=== PATIENT | female | born 1985 | race Caucasian/White ===

== ENCOUNTER 2020-01-18 07:45 | Day surgery (SDC) | payer OTHER ==
[~2020-01-18] VITALS: Ht 157.5 cm; Wt 70.3 kg
[~2020-01-18 07:45] MED LIST: CELEXA20 MG PO; IBUPROFEN800 MG PO; NORCO 5-325 TA1 EACH PO; YAZ 28 TABLET1 EACH PO
[2020-01-18] MEDS ORDERED: LEVOTHYROXINE50 MCG PO (08:22)
--- NOTE | 2020-01-18 11:47 | NUR ---
PATIENT UPDATED ON PLAN OF CARE. SHE REPORTS FEELING HUNGRY AND DENIES NEEDS OTHERWISE.
--- NOTE | 2020-01-18 14:32 | NUR ---
01/18/20 1432 Tiffanie Gastelum 1423- PT ARRIVES TO PACU EASILY AROUSABLE TO VOICE WITH HER EYES CLOSED. RESP EVEN AND UNLABORED. OXYGEN SAT HIGH 90'S TO 100% ON 6L VIA MASK. PT REPORTS NO PAIN OR NAUSEA. 1429- OXYGEN TITRATED OFF. 1432- PT PROVIDED WITH A WARM BLANKET PER HER REQUEST.
--- NOTE | 2020-01-18 15:41 | NUR ---
LE 1515: PATIENT ARRIVES BACK TO ROOM 4 FROM PACU. SPOUSE IS AT THE BEDSIDE. PATIENT IS COMPLAINING OF CATHETER DISCOMFORT. MCKNIGHT BALLOON IS DEFLATED FOR 10 ML FLUID. SCANT AMOUNT OF BRIGHT YELLOW URINE IS NOTED TO MCKNIGHT OVERNIGHT BAG. MCKNIGHT CATHETER IS DC WNL. PATIENT TOLERATES THAT WELL. PATIENT ASKS TO AMBULATE TO THE BATHROOM. SHE DOES WELL WITH THAT AND VOIDS 100 ML BRIGHT YELLOW URINE AND REPORTS A SCANT AMOUNT OF BLOOD ON THE TOILET TISSUE AFTER VOIDING. PATIENT IS BACK IN HER ROOM. SCDS ARE IN PLACE AND TURNED ON. SADIQ HUGGER IS ON WARM. APPLESAUCE AND ICED WATER IS GIVEN. PATIENT IS SITTING UP IN BED, EATING AND DRINKING AND SHE IS TOLERATING THAT WELL. CALL LIGHT IS WITHIN REACH.
--- NOTE | 2020-01-18 16:08 | NUR ---
PATIENT DENIES NAUSEA AFTER APPLESAUCE. CRACKERS ARE GIVEN.
[2020-01-18] MEDS ORDERED: MOTRIN IB200 MG PO (16:18)
[2020-01-18] MEDS ORDERED: PERCOCET 5-3251 EACH PO (16:18)
--- NOTE | 2020-01-18 17:34 | NUR ---
LE 1720: PATIENT IS UP TO THE BATHROOM. SHE AMBULATES WELL AND DENIES DIZZINESS. PATIENT VOIDS A LARGE QUANTITY AND IS BACK TO HER ROOM. PATIENT REPORTS FEELING READY FOR DISCHARGE. DISCHARGE INSTRUCTIONS ARE GIVEN AND SHE VERBALIZES UNDERSTANDING. PATIENT IS GETTING DRESSED.
--- NOTE | 2020-01-21 12:29 | OR ---
[facility] [address] [place], [place] [address] Signed DATE OF OPERATION: 01/18/2020 SURGEON: Memo Newman MD Patient of Dr. Newman. PREOPERATIVE DIAGNOSES: Pelvic pain, adenomyosis, and endometriosis. POSTOPERATIVE DIAGNOSES: Pelvic pain, adenomyosis, and endometriosis. PROCEDURES: Total laparoscopic hysterectomy with left salpingo-oophorectomy and cystoscopy. LETTER OF CREDIT CLERK: Dr. Day. ANESTHESIA: General. ESTIMATED BLOOD LOSS: 20 mL. SPECIMEN: Uterus, left fallopian tube, and ovary. DRAINS: Hammond to bladder. PACKING: None. FINDINGS: Normal-sized cervix, normal-size uterus with scattered small white superficial lesions on the surface of the uterus. Anterior cul-de-sac was free of any endometriosis or adhesions. Posterior cul-de-sac was free of any endometriosis or adhesions. Right tube and ovary were absent from previous surgery and no adhesions noted. The left tube and ovary were slightly twisted around the uteroovarian ligament. The fallopian tube showed evidence of previous tubal ligation. The ovary was of normal size and shape without any Electronically Signed By: MEMO NEWMAN MD 01/21/20 1229 PATIENT NAME: SAKINA OLSON OPERATIVE REPORT DATE OF : 81 REPORT #: [id number] PHYSICIAN: MEMO NEWMAN MD PCP: LEXX BLACKWELL MD REPORT IS CONFIDENTIAL AND NOT TO BE RELEASED WITHOUT AUTHORIZATION [facility] [address] [place], [place] [address] Signed adhesions. No other masses or adhesions were seen. DESCRIPTION OF PROCEDURE: The patient was brought into the operating room, placed in supine position. After adequate general anesthesia was obtained, she was placed in the dorsal lithotomy position, prepped and draped in usual sterile fashion. Hammond catheter was placed in the bladder. A weighted speculum was placed in the vagina and the anterior lip of cervix was grasped with an Allis clamp. The cervix was partially dilated and then the LOGIC DEVICES uterine manipulator inserted through the cervix into the fundus of the uterus and the balloon filled with water. The Allis clamp was removed. The cervical cap slid up along the manipulator and around the cervix and the vaginal cup inserted up against the cervical cap and tightened in place. Weighted speculum was removed. Attention was then drawn to the abdomen. A small infraumbilical skin incision was made with a scalpel after injecting the area with 0.25% Marcaine with epinephrine. Subcutaneous tissue was dissected with Metzenbaum scissors. The fascia identified, grasped, hemostats elevated, nicked with Metzenbaum scissors and extended in a transverse fashion using Metzenbaum scissors. Upper and lower edges of the fascia were then grasped and a stitch of 0 Vicryl suture placed on each side of the incision. These were used to hold the sleeve in place. Finger dissection was used to open the peritoneum and then the Mahsa cannula and sleeve entered the abdomen under direct visualization. The balloon was filled on the sleeve and the outer sleeve slid down and tightened in place and the two retention stitches attached to this outer sleeve. Trocar was removed and laparoscope with video attachment entered the abdomen under direct visualization. Carbon dioxide was used as distending medium. On the left side, a small skin incision was made approximately 10 cm lateral to the midline and just below the level of the umbilicus. The area was 1st transilluminated to avoid any vessels. The area injected with 0.25% Marcaine with epinephrine. Then, a small skin incision made with a scalpel. A bladed 5-mm trocar and sleeve entered the abdomen under direct visualization. Trocar was removed and the balloon at the end of the sleeve filled with air. A blunt grasper inserted through this incision. On the right side again, the abdominal wall was transilluminated approximately 10 cm lateral to the midline and just below the level of the umbilicus. After transilluminating the skin, the area was injected with 0.25% Marcaine with epinephrine and a small skin incision made with a scalpel. A Veress needle with expandable sleeve was then placed in the abdomen under direct visualization. The Veress needle was removed and expandable port was placed in the expandable sleeve and slid into the abdomen under direct visualization. Trocar was removed and blunt grasper was inserted through this side. The above findings were confirmed. The LigaSure bipolar Maryland forceps were used for dissection. The left infundibulopelvic ligament was identified and grasped with bipolar forceps and cauterized in several places and then cut and an Endoloop of 0 Monocryl was placed around the infundibulopelvic ligament and Electronically Signed By: MEMO NEWMAN MD 01/21/20 1229 PATIENT NAME: SAKINA OLSON OPERATIVE REPORT DATE OF : 81 REPORT #: [id number] PHYSICIAN: MEOM NEWMAN MD PCP: LEXX BLACKWELL MD REPORT IS CONFIDENTIAL AND NOT TO BE RELEASED WITHOUT AUTHORIZATION [address] [address] [address] and the tail cut with laparoscopic scissors. The peritoneum just lateral to the tube and ovary were then cauterized and cut with bipolar forceps down to the broad ligament, which was then opened anterior and posteriorly using the Maryland forceps to expose the uterine vessels. This was done close to the side of the uterus and extended to the midline just inside the cervical cap, which could be palpated laparoscopically. Uterine vessels were exposed and then cauterized in several places and cut with Tere forceps, bipolar forceps. The bladder was gently pulled up and away from the cervical cap. As this was done, the anterior peritoneum was dissected. Maryland forceps were then placed in the right side. The right round ligament was cauterized and cut in 2 places and then the peritoneum opened on either side of this anteriorly extending to the broad ligament and down connecting with previous dissection, also posteriorly to the broad ligament and down connecting to the previous dissection posteriorly. Uterine vessels were then exposed. They were cauterized in several places and cut with Tere forceps. The paracervical tissue just inside the cervical cap was cauterized and cut on both sides down to the level of the vaginal wall. The Sonicision instrument was then provided in the operating field and posterior colpotomy made into the groove of the cervical cap and then the vaginal wall tissue cut with the Sonicision posterior to anterior in the groove of the cap on the left side and then posterior to anterior on the right side in the groove of the cap. This the uterus and left tube and ovary from the vagina. The LOG[employer] uterine manipulator was carefully withdrawn with the uterus and tube attached and was passed off the field. A lap pad filled glove was then placed in the vagina, so that the abdomen could be re-insufflated. Attention was then drawn back to the abdomen. The abdomen was re-insufflated. The entire pelvis irrigated, suctioned, examined, and noted to have good hemostasis. Endo Stitch with barbed suture was then used to close the vaginal cuff, starting at the right angle at the uterosacral ligament, making sure to stay on the uterosacral ligament medially and stitching from posterior to anterior individually through the posterior vaginal mucosa, then the anterior vaginal mucosa. This was continued across to the left angle against staying between the 2 uterosacral ligaments and grasping the vaginal mucosa mild and staying shallow enough to avoid the bladder. Upon reaching the left angle, the barbed suture was taken back towards the midline in the combined cuff and thus to help lock suture in place and then suture cut against the vaginal wall. The remaining suture cut off right at the vaginal wall. The entire pelvis was irrigated, suctioned, and examined; noted to have good hemostasis. The gas was allowed to escape to lower the pressure and good hemostasis remained, so all instruments were removed and all the rest of the gas removed and the final sleeves removed. The infraumbilical incision fascia was closed using running stitch of 0 Vicryl suture. The two retention stitches were tied together for further support. The 3 skin incisions were closed using subcuticular stitches of 4-0 Vicryl suture. Cystoscopy was then performed. Hammond catheter was removed and then the 70-degree Electronically Signed By: MEMO NEWMAN MD 01/21/20 1229 PATIENT NAME: SAKINA OLSON OPERATIVE REPORT DATE OF : 81 REPORT #: [id number] PHYSICIAN: MEMO NEWMAN MD PCP: LEXX BLACKWELL MD REPORT IS CONFIDENTIAL AND NOT TO BE RELEASED WITHOUT AUTHORIZATION [address] [address] Signed cystoscope carefully placed through the urethra into the bladder under direct visualization. Sterile water was used as distending medium. The entire bladder was inspected. The dome and both sides showed no puckering, no sutures, no lacerations, and the bladder was holding fluid well. Both ureteral orifices were identified and both had good jets of urine. At this point, the cystoscope was removed. The bladder drained with the cystoscope sleeve before the sleeve was removed and the Hammond catheter placed back in the vagina. The glove was removed from the vagina and procedure terminated. The patient tolerated the procedure well, went to recovery room in good condition. The sponge, needle, and instrument counts were correct at the end of procedure. Memo Newman MD MJB/MODL /[id number] cc: Lexx Blackwell MD Copies: LEXX BLACKWELL MD ~ Electronically Signed By: MEMO NEWMAN MD 01/21/20 1229 PATIENT NAME: SAKINA OLSON OPERATIVE REPORT DATE OF : 81 REPORT #: [id number] PHYSICIAN: MEMO NEWMAN MD PCP: LEXX BLACKWELL MD REPORT IS CONFIDENTIAL AND NOT TO BE RELEASED WITHOUT AUTHORIZATION
--- NOTE | 2020-01-22 17:57 | PATH ---
[facility] [address] [place], [place] [address] Signed SPECIMEN(S): A UTERUS, CERVIX, LEFT TUBE OVARY SPECIMEN SOURCE: A. UTERUS, CERVIX, LEFT TUBE OVARY CLINICAL HISTORY: Pelvic pain, endometriosis, adenomyosis. FINAL PATHOLOGIC DIAGNOSIS: Uterus, cervix, left tube and ovary, hysterectomy with left salpingo-oophorectomy: - Unremarkable endocervical epithelium. - Chronic cervicitis. - Endocervical epithelium with focal squamous metaplasia. - Nabothian cysts. - Uterus with weakly proliferative endometrium and focal adenomyosis. - Leiomyomata. - Left ovary with corpora albicantia, regressing corpus luteum, cystic follicles and evidence of old hemorrhage from a focus of endometriosis. - Fallopian tube within normal limits. TWK:cml:C2NR MICROSCOPIC EXAMINATION: Histologic sections of all submitted blocks are examined by light microscopy. These findings, together with the gross examination, support the pathologic diagnosis. GROSS DESCRIPTION: The specimen, labeled "AJ, uterus, cervix, left ovary," is received in formalin and consists of uterus and cervix with attached left fallopian tube and ovary. Uterus measures 5.2 cm cornu to cornu, 4.0 cm anterior-posterior, 7.8 cm superior to ectocervix. The serosal surface is violaceous and focally congested. The trimmed uterus weighs 112 grams. The ectocervix is pink-flynn, focally congested and measures 5.7 x 5.3 cm. Sectioning through the cervix reveal pink-red, congested tissue. Endometrial cavity measures 1.7 x 2.5 cm. It is lined with pink-red, hemorrhagic and smooth endometrium. Sectioning through myometrium reveals one subendometrial and one intramural white, firm, well-defined nodules that measure 0.4 cm in diameter each. Sectioning through the nodules reveal white, firm, whorled surface. The remaining of the myometrium reveals trabeculated surface. PATIENT NAME: SAKINA OLSON PATHOLOGY DATE OF : 81 REPORT #: [id number] PHYSICIAN: JAYSHREE YEH PCP: PILLO BLACKWELL MD REPORT IS CONFIDENTIAL AND NOT TO BE RELEASED WITHOUT AUTHORIZATION [facility] [address] [place], [place] [address] Signed The myometrium measures 1.9 cm in thickness. The endometrium measures up to 0.1 cm in thickness. The left ovary measures 2.0 x 1.4 x 1.2 cm. The serosal surface is pink-flynn, focally congested and smooth. Sectioning through the ovary is grossly unremarkable. The left fallopian tube measures 3.5 cm in length and 0.7 cm in diameter. It shows fimbria and violaceous and smooth serosa. Sectioning through the tube is unremarkable. Cassette summary: (A1) The cervix, field sales representative sections, posterior inked (A2) Endomyometrium, field sales representative sections (A3) Two nodules, entirely submitted (A4-A5) The left ovary and fallopian tube, field sales representative sections JS (under the direct supervision of a pathologist) The Gross Description was prepared using a voice recognition system. The report was reviewed for accuracy; however, sound-alike word errors, addition and/or deletions may occur. If there is any question about this report, please contact Client Services. PERFORMING LABORATORY: The technical component was performed by [facility], [address] [place] [id number] (Map Compiler: Danette Richmond MD; CLIA# [id number]). Professional interpretation was performed by [facility], [facility], [address] [address] (CLIA# [id number]). Diagnostician: Sam Morse MD Pathologist Electronically Signed 01/22/2020 Copies: ~ PATIENT NAME: SAKINA OLSON PATHOLOGY DATE OF : 81 REPORT #: [id number] PHYSICIAN: JAYSHREE PATHOLOGY PCP: PILLO BLACKWELL MD REPORT IS CONFIDENTIAL AND NOT TO BE RELEASED WITHOUT AUTHORIZATION
== END 2020-01-18 17:25 | disposition home or self-care (01) ==
LOC: DS 07:45
PROVIDERS: ATTEND General Practice
PROC: 0UT94ZZ Resection of Uterus, Percutaneous Endoscopic Approach (ICD-10-PCS; principal; 2020-01-18 08:45)
PROC: 0UT14ZZ Resection of Left Ovary, Percutaneous Endoscopic Approach (ICD-10-PCS; 2020-01-18 08:45)
PROC: 0UT64ZZ Resection of Left Fallopian Tube, Percutaneous Endoscopic Approach (ICD-10-PCS; 2020-01-18 08:45)
DX: N80.0 Endometriosis of uterus (principal); N72 Inflammatory disease of cervix uteri; N87.9 Dysplasia of cervix uteri, unspecified; D25.9 Leiomyoma of uterus, unspecified; N88.8 Other specified noninflammatory disorders of cervix uteri; E03.9 Hypothyroidism, unspecified; F41.9 Anxiety disorder, unspecified; Z79.899 Other long term (current) drug therapy; Z87.442 Personal history of urinary calculi; Z88.5 Allergy status to narcotic agent; Z88.8 Allergy status to other drugs, medicaments and biological substances
CPT/HCPCS: 00840; J0131; J0330; J0690; J1100; J1644; J1885; J2405; J2704; J2765; J3010; J3475; J7121